=== PATIENT | female | born 1975 | race Two or more races ===

== ENCOUNTER 2023-02-15 16:29 | Emergency (ER) | payer OTHER ==
[2023-02-15 16:53] VITALS: BP 140/90; PULSE 84; RESP 18; TEMP 97; BMI 31.0
[2023-02-15] MEDS ORDERED: ACETAMINOPHEN 500 MG TABLET (FP) PO ONE (17:25)
[2023-02-15] MEDS ORDERED: IBUPROFEN 600 MG TABLET (FP) PO ONE ×2 (17:25→17:32)
[2023-02-15] MEDS ORDERED: ACETAMINOPHEN 500 MG TABLET (FP) ONE (17:32)
== END 2023-02-15 19:02 | disposition home or self-care (01) ==
LOC: JERFT 16:29
DX: M25.522 Pain in left elbow (principal); S50.02XA Contusion of left elbow, initial encounter; V03.99XA Pedestrian with other conveyance injured in collision with car, pick-up truck or van, unspecified whether traffic or nontraffic accident, initial encounter; Y92.481 Parking lot as the place of occurrence of the external cause
CPT/HCPCS: 73070-TC-LT-FY; 99283-25